=== PATIENT | female | born 1980 | race Caucasian/White ===

== ENCOUNTER → 2018-08-18 | Outpatient (REF) | payer OTHER ==
[2018-08-18 12:39] LABS: ERYTHROCYTE SEDIMENTATION RATE 2 mm/hr (0-20)
[2018-08-18 13:24] LABS: C REACTIVE PROTEIN QUANTITATIV 0.43 MG/DL (0.00-0.30)
[2018-08-24 00:06] LABS: HLA-B27 Negative (.)
== END ==
LOC: M LAB REF 12:15
DX: M51.26 Other intervertebral disc displacement, lumbar region (principal)
CPT/HCPCS: 86140

== ENCOUNTER → 2020-01-04 | Outpatient (REF) | payer OTHER | LOC: M SFHCLERA 20:28 | PROVIDERS: ATTEND Nurse Practitioner Family | DX: R53.81 Other malaise (principal) ==